=== PATIENT | male | born 1960 | race Caucasian/White ===

== ENCOUNTER 2018-11-20 14:38 | Outpatient (CLI) | payer BC ==
--- NOTE | 2018-11-20 12:49 | HP ---
HISTORY OF PRESENT ILLNESS: Mr. Ramiro Ortega is a very pleasant 58-year-old gentleman, accompanied by his , who [facility] for evaluation of lymphedema of the right and left lower extremities. The patient also reports significant erythema of the right and left lower extremities. The patient is followed by Dr. Xiomy Sánchez. The patient has no other complaints today. He denies any fever or chills. PAST MEDICAL HISTORY: Negative for diabetes mellitus, hypertension, or coronary artery disease. PAST SURGICAL HISTORY: Herniorrhaphy. MEDICATIONS: Lasix. ALLERGIES: BACTRIM. SOCIAL HISTORY: Social history is negative for tobacco or EtOH use. FAMILY HISTORY: Family history is negative for diabetes mellitus or coronary artery disease. PHYSICAL EXAMINATION: VITAL SIGNS: Temperature 97.5, pulse 92, respirations 19, blood pressure 166/97. GENERAL: A 58-year-old gentleman, lying on table in examination room, in no acute distress. HEENT: Normocephalic, atraumatic. NECK: No nuchal rigidity. CHEST: Clear to auscultation. CV: Regular rate and rhythm. ABDOMEN: Soft. EXTREMITIES: An ulceration is present over the right lateral lower leg, which measures approximately 9.0 x 7.5 cm. An ulceration is present over the left medial lower leg, which measures approximately 0.7 x 0.7 cm. No purulent drainage is associated with either wound. Erythema of the right and left lower legs is present. No maceration of the skin of the periwound of either wound is noted. Lymphedema of the right and left lower extremities is present on exam today. Hyperpigmentation of the skin of the right and left lower legs is present on today's exam. ASSESSMENT AND PLAN: 1. Lymphedema tarda. The patient will be referred to Occupational Therapy. The patient's states she is willing to learn the proper application of short stretch dressings for treatment of lymphedema. The patient will also be seen on 12/07/2018. At this time, the patient will consider initiating lymphedema therapy with a pneumatic pump. The patient has been evaluated for venous ablation in the past. I have also discussed the importance of weight management in improving the lymphedema of the right and left lower extremities. The patient's will continue dressing changes for the ulcerations of the right and left lower legs. The patient's is to perform dressing changes of Medihoney alginate followed by Webril and Coban every other day after cleansing and irrigation for the wounds of the right and left lower legs. The patient and his understand and are in agreement with the preceding treatment plan. 2. Bilateral lower extremity cellulitis. I have explained to the patient that with lymphedema, he is susceptible to bouts of cellulitis. The patient has been given a prescription for Augmentin 875/125, #21 p.o. b.i.d. x10 days. The patient and his state that they will report to the [facility] on 12/07/2018 for a followup visit. At this time, the patient's response to the course of p.o. antibiotics will be assessed. Job ID: [id number]
[2018-11-20] MEDS ORDERED: Sodium Chloride 0.9% 15 ML NEB ONE (18:00)
== END 2018-11-20 14:39 | disposition home or self-care (01) ==
LOC: WCC 14:38
PROVIDERS: ATTEND Family Medicine
DX: L97.919 Non-pressure chronic ulcer of unspecified part of right lower leg with unspecified severity (principal); I89.0 Lymphedema, not elsewhere classified; L03.116 Cellulitis of left lower limb; L03.115 Cellulitis of right lower limb
CPT/HCPCS: A4218

== ENCOUNTER 2018-12-07 10:52 | Outpatient (CLI) | payer BC ==
--- NOTE | 2018-12-07 10:19 | PRG ---
DATE OF SERVICE: 12/07/2018 HISTORY: Mr. Ramiro Ortega is a very pleasant 58-year-old gentleman, accompanied by his , who presents to the [facility] for evaluation of lymphedema of the right and left lower extremities. The patient is presently being seen by Occupational Therapy for treatment of his lymphedema. The patient and his report a significant improvement in the lymphedema of the right and left lower extremities after beginning treatment with Occupational Therapy. The patient has no complaints today. He denies any fever or chills. PHYSICAL EXAMINATION: VITAL SIGNS: Temperature 97.5, pulse 95, respirations 24, blood pressure 144/75. EXTREMITIES: An ulceration is present over the right lateral lower leg, which measures approximately 7.0 x 3.5 cm. An ulceration is present over the left medial lower leg, which measures approximately 1.0 x 1.0 cm. No purulent drainage is associated with either wound. No cellulitis of the right or left lower extremity is appreciated. No maceration of the skin of the periwound of either wound is noted. Lymphedema of the right and left lower extremities is noted on today's exam. Circumferences of the right lower extremity at the ankle, calf, and knee are 37 cm, 56 cm, and 56 cm. Circumferences of the left lower extremity at the ankle, calf, and knee are 35 cm, 53 cm, and 54 cm. Hyperpigmentation of the skin of the right and left lower legs is noted on exam today. ASSESSMENT AND PLAN: 1. Lymphedema tarda. The patient is now being seen by Occupational Therapy. Arrangements will continue for in-home lymphedema therapy with a pneumatic pump. The patient has been previously evaluated for venous ablation. 2. Bilateral lower extremity cellulitis. The patient was previously given a prescription for Augmentin 875/125, #20, 1 p.o. b.i.d. x10 days. The cellulitis of both lower extremities appears to have resolved. Job ID: [id number]
[2018-12-07] MEDS ORDERED: Sodium Chloride 0.9% 15 ML NEB ONE (15:00)
== END 2018-12-07 10:53 | disposition home or self-care (01) ==
LOC: WCC 10:52
PROVIDERS: ATTEND Family Medicine
DX: I89.0 Lymphedema, not elsewhere classified (principal); L03.116 Cellulitis of left lower limb; L03.115 Cellulitis of right lower limb
CPT/HCPCS: 29581; A4218